=== PATIENT | male | born 1960 | race American Indian/Alaskan Native ===

== ENCOUNTER 2021-07-18 08:40 | Outpatient (CLI) | payer BC ==
--- NOTE | 2021-07-18 09:51 | Ultrasound Report ---
ULTRASOUND SCROTUM INDICATION / CLINICAL INFORMATION: SCROTAL PAIN/RIGHT. COMPARISON: None available. FINDINGS -- RIGHT: TESTIS: Size = 3.3 x 1.6 x 2.3 cm. - Appearance: No significant abnormality. - Cyst / Mass: None. - Color Doppler Flow: No significant abnormality. EPIDIDYMIS: No significant abnormality. HYDROCELE: Small hydrocele. VARICOCELE: None demonstrated. FINDINGS -- LEFT: TESTIS: Size = 3.2 x 2.3 x 2.6 cm. - Appearance: No significant abnormality. - Cyst / Mass: None. - Color Doppler Flow: No significant abnormality. EPIDIDYMIS: Left epididymal head cyst measuring 0.3 x 0.3 cm HYDROCELE: Large hydrocele VARICOCELE: None demonstrated. ADDITIONAL FINDINGS: None. IMPRESSION: 1. Testes have a normal appearance. No evidence of torsion. 2. Bilateral hydroceles, larger on the left. 3. Small left epididymal head cyst. Signer Name: Dexter Ellsworth MD Signed: 07/18/2021 9:46 AM Workstation Name: [id number]
== END 2021-07-18 08:41 | disposition home or self-care (01) ==
LOC: VAS 08:40
PROVIDERS: ATTEND Urology
DX: N43.2 Other hydrocele (principal); N50.3 Cyst of epididymis
CPT/HCPCS: 93975